=== PATIENT | female | born 1960 | race Caucasian/White ===

== ENCOUNTER 2023-12-27 08:04 | Inpatient (IN) | payer OTHER ==
[~2023-12-27] VITALS: Ht 165.1 cm; Wt 87.0 kg
[~2023-12-27 08:04] MED LIST: ALBUAER3 IN; BUPR150T18 PO; CALC-437 OR; IBUP1TAB5 PO; LIDO1CRE EX; MULT-927 PO; QUET200T4 PO
[2023-12-27] MEDS: CELECOXIB 100 MG CAP PO ONE (09:30)
[2023-12-27] MEDS: PREGABALIN CAPSULE 75 MG CAP PO ONE (09:30)
[2023-12-27] MEDS: ACETAMINOPHEN IV 1000 MG/100ML (10MG/ML) IV ONE (09:30)
[2023-12-27] MEDS: CELECOXIB 100 MG CAP ONE (09:30)
[2023-12-27] MEDS: PREGABALIN CAPSULE 75 MG CAP ONE (09:31)
[2023-12-27] MEDS: ACETAMINOPHEN IV 100 ML IV ONE (09:31)
[2023-12-27] MEDS ORDERED: MIDAZOLAM HCL 2MG/2ML 2ml VIAL (1mg/ml) ONE (09:38)
[2023-12-27] MEDS ORDERED: fentaNYL CITRATE 100 MCG/2 ML VL ONE (09:38)
[2023-12-27] MEDS ORDERED: PROPOFOL 10 MG/ML 20 ML IV ONE ×2 (09:38→10:54)
[2023-12-27] MEDS ORDERED: ONDANSETRON HCL 4 MG/2 ML VIAL ONE (09:38)
[2023-12-27] MEDS ORDERED: DexAMETHasone SOD PHOS 10MG/1ML VIAL INJ ONE (09:38)
[2023-12-27] MEDS ORDERED: SODIUM CHLORIDE LOCK 10 ML ONE (09:38)
[2023-12-27] MEDS ORDERED: KETAMINE 50mg/ML 1ml syringe ONE (09:39)
[2023-12-27] MEDS ORDERED: EPINEPHrine HCL 1 MG/1 ML AMP ONE (09:44)
[2023-12-27] MEDS ORDERED: BUPIVACAINE/DEXTROSE MPF 0.75% 2 ML AMP IT ONE (09:44)
[2023-12-27] MEDS ORDERED: NITROGLYCERIN 0.4 MG SL TAB SL PRN (09:45)
[2023-12-27] MEDS ORDERED: ALBUTEROL SULF HFA 90MCG INH 200DOSE IN SCH (09:45)
[2023-12-27] MEDS ORDERED: OXYCODONE W/ ACETAMINOPHEN 5/325MG TABLET PO PRN (09:45)
[2023-12-27] MEDS ORDERED: MORPHINE SULFATE INJ 2 MG/ml SYRG IV PRN ×2 (09:45→10:15)
[2023-12-27] MEDS: ENOXAPARIN SOD 40 MG/0.4 ML SYRINGE SC SCH (10:00)
[2023-12-27] MEDS ORDERED: ONDANSETRON HCL 4 MG/2 ML VIAL IV PRN (10:15)
[2023-12-27] MEDS ORDERED: HYDROmorphone HCL 2 MG/ML VL/or syr IV PRN ×2 (10:15)
[2023-12-27] MEDS: DexAMETHasone SOD PHOS 4 MG/1ML SDV INJ ONE (11:02)
[2023-12-27] MEDS: BUPIVACAINE 0.25% INJ 50ML VIAL ONE (11:02)
[2023-12-27 11:11] VITALS: RESP 14; O2SAT 97
[2023-12-27] MEDS: LACTATED RINGER'S 1,000 ML IV SCH (12:45)
[2023-12-27] MEDS: MULTIPLE VITAMINS W/ MINERALS TAB PO SCH (14:14)
[2023-12-27] MEDS: oxyCODONE ER 10 MG TAB PO SCH (14:44)
[2023-12-27] MEDS: NICOTINE 21MG/24 HR TOPICAL PATCH TD ONE (14:50)
[2023-12-27] MEDS: HYDROmorphone HCL 2 MG/ML VL/or syr IV PRN (15:10)
[2023-12-27] MEDS: SODIUM CHLOR 0.9% PF (SALINE LOCK) 10ML VIAL/SYR IV SCH (15:10)
[2023-12-27] MEDS: ceFAZolin 1GM/50ML 50 ML IV SCH ×2 (15:20→20:42)
[2023-12-27] MEDS: ONDANSETRON HCL 4 MG/2 ML VIAL IV PRN (15:54)
[2023-12-27 16:13] VITALS: PULSE 81; RESP 18; O2SAT 97
[2023-12-27 16:56] VITALS: BP 130/67; PULSE 79; RESP 16; TEMP 98.2; O2SAT 97
[2023-12-27 20:00] VITALS: BP 106/62; PULSE 78; RESP 16; TEMP 97.6; O2SAT 100
[2023-12-27] MEDS ORDERED: ALBUTEROL SULF 2.5 MG/0.5ML(0.5%) NEB SOLN NEB PRN (21:45)
[2023-12-27 22:00] VITALS: BP 106/62; PULSE 79; RESP 16; TEMP 97.6; O2SAT 100
[2023-12-27] MEDS ORDERED: Quetiapine Fumerate (Seroquel Xr) 200 MG PO SCH (22:00)
[2023-12-27] MEDS: QUEtiapine FUMARATE 100 MG TAB PO SCH (22:14)
[2023-12-27 23:36] VITALS: BP 106/62; PULSE 79; RESP 16; O2SAT 100
[2023-12-28] VITALS (10 sets, daily range): BP systolic 104–151; BP diastolic 59–71; PULSE 72–89; RESP 15–19; TEMP 97.8–99.8; O2SAT 97–100
[2023-12-28 06:48] LABS: Basophils # (auto) 0 10 ^3/uL (0-0.2); Basophils % (auto) 0.1 % (0.0-2.0); Eosinophils # (auto) 0 10 ^3/uL (0-0.8); Hematocrit 34.8 % (36.0-46.0); Hemoglobin 11.5 g/dL (12.2-16.2); Lymphocytes # (auto) 1.5 10 ^3/uL (0.4-5.4); Lymphocytes % (auto) 12.8 % (10.0-50.0); Mean Corpuscular Hgb Conc. 33.1 g/dL (32.0-36.0); Mean Corpuscular Volume 87.7 fL (80.0-100.0); Monocytes % (auto) 9.1 % (0.0-12.0); Nucleated Red Blood Cells % 0.2 %; Red Blood Cells 3.97 10^6/uL (4.0-5.20); Red Cell Distribution Width 13.3 % (11.8-14.3); White Blood Cell 11.6 10^3/uL (4.4-10.8)
[2023-12-28 06:49] LABS: Alanine Aminotransferase 17 U/L (7-40); Albumin 3.4 g/dL (3.2-4.8); Alkaline Phosphatase 67 U/L (46-116); Anion Gap 5 (5-15); Aspartate Aminotransferase 12 U/L (13-40); BUN/Creatinine Ratio 10.7 (10.0-20.0); Bilirubin, Total 0.5 mg/dL (0.2-1.0); Blood Urea Nitrogen 8 mg/dL (9-23); Calcium 8.7 mg/dL (8.7-10.4); Carbon Dioxide 25 mmol/L (20-30); Chloride 109 mmol/L (98-107); Glucose 115 mg/dL (74-106); Potassium 4.4 mmol/L (3.5-5.1); Sodium 139 mmol/L (136-145); Total Protein 5.8 g/dL (5.7-8.2)
[2023-12-28] MEDS ORDERED: buPROPion HCL 75 MG TAB PO SCH (07:00)
[2023-12-28] MEDS ORDERED: BUPROPION HCL 300 MG PO SCH (07:00)
[2023-12-28] MEDS: NICOTINE 21MG/24 HR TOPICAL PATCH TD SCH (09:28)
[2023-12-29 05:00] VITALS: BP 113/54; PULSE 107; RESP 18; TEMP 99.9; O2SAT 93
[2023-12-29 09:00] VITALS: BP 108/61; PULSE 107; RESP 18; TEMP 98.4; O2SAT 90
[2023-12-29 11:42] VITALS: TEMP 36.9
[2023-12-29 11:50] VITALS: BP 104/56; PULSE 103; RESP 20; TEMP 100; O2SAT 93
[2023-12-29 12:25] VITALS: O2SAT 91
== END 2023-12-29 12:35 | disposition home or self-care (01) | DRG 470 ==
LOC: SUR 08:04 → OVERFLOW 09:36 → CENTRAL 15:45
PROVIDERS: ADMIT Orthopaedic Surgery Adult Reconstructive Orthopaedic Surgery; ATTEND Internal Medicine
PROC: 0SRD0J9 Replacement of Left Knee Joint with Synthetic Substitute, Cemented, Open Approach (ICD-10-PCS; principal; 2023-12-27 09:43)
DX: M17.12 Unilateral primary osteoarthritis, left knee (principal); F31.9 Bipolar disorder, unspecified; F17.210 Nicotine dependence, cigarettes, uncomplicated
CPT/HCPCS: 36415; 73562; 80053; 84443; 85025; 86850; 86900; 86901; 97163; G0378; J0131; J0171; J1100; J2250; J2405; J2704; J3490

== ENCOUNTER 2024-08-24 21:25 | Inpatient (IN) | payer OTHER ==
[~2024-08-24] VITALS: Ht 165.1 cm; Wt 75.6 kg
[2024-08-24 21:50] LABS: Basophils # (auto) 0.1 10 ^3/uL (0-0.2); Basophils % (auto) 0.5 % (0.0-2.0); Eosinophils # (auto) 0 10 ^3/uL (0-0.8); Hematocrit 43.7 % (36.0-46.0); Hemoglobin 14.9 g/dL (12.2-16.2); Lymphocytes # (auto) 1.4 10 ^3/uL (0.4-5.4); Lymphocytes % (auto) 11.7 % (10.0-50.0); Mean Corpuscular Hemoglobin 30.1 pg (28.0-32.0); Mean Corpuscular Hgb Conc. 34.2 g/dL (32.0-36.0); Monocytes # (auto) 0.7 10 ^3/uL (0-1.3); Monocytes % (auto) 5.6 % (0.0-12.0); Neutrophils # (auto) 9.5 10 ^3/uL (1.6-8.6); Neutrophils % (auto) 82.2 % (37.0-80.0); Nucleated Red Blood Cells % 0.2 %; Platelet Count (auto) 272 10^3/uL (140-450); Red Blood Cells 4.96 10^6/uL (4.0-5.20); Red Cell Distribution Width 13.5 % (11.8-14.3); White Blood Cell 11.6 10^3/uL (4.4-10.8)
[2024-08-24 21:58] LABS: Chloride 110 mmol/L (98-107); Potassium 4.2 mmol/L (3.5-5.1); Sodium 140 mmol/L (136-145)
[2024-08-24 21:59] LABS: Calcium 10.1 mg/dL (8.7-10.4)
--- NOTE | 2024-08-24 21:59 | DVH ---
EXAM: XY CHEST PORTABLE CLINICAL HISTORY: syncope TECHNIQUE: Single AP view of the chest WID: COMPARISON: None FINDINGS: Lines and tubes: None Chest: The heart size and pulmonary vasculature is within normal limits. No pleural effusion, pneumothorax, or consolidation. The osseous structures are grossly intact. Multilevel thoracic spondylosis IMPRESSION: No acute cardiopulmonary abnormality.
--- NOTE | 2024-08-24 22:00 | ED.PDOC ---
History of Present Illness HPI Comments 64 year old female came to ER via EMS due to syncope. Patient has history of hypertension, states for the past 4 days, she has been having intermittent episodes of syncopal attacks., States she would feel dizzy, lightheaded, with headaches, diaphoretic, nausea, vomiting, dry heaving and she would just pass ou t. States this happened quite a few times the past 4 days. Upon arrival, blood pressure was 186/82 mmHg Chief Complaint: Syncope Time Seen by MD: 22:00 Reviewed Notes: Nurses Notes Allergies: Coded Allergies: NO KNOWN ALLERGIES (Unverified , 12/23/23) Home Meds Reported Medications Ibuprofen Micronized (Ibuprofen) 600 Mg Tab, 600 MG PO BID, TAB 12/23/23 Calcium W/ Vitamins D & K (CALCIUM + D) Chw, 1 OR DAILY, TAB.CHEW 12/23/23 Multiple Vitamins W/ Minerals (Centrum Silver 50+Women) 1 Tab Tab, 1 TAB PO DAILY, TAB 12/23/23 Lidocaine HCl-Benzyl Alcohol (Salonpas Lidocaine Plus 4-10 %) 1 Cre Cre, 1 CRE EX PRN, CRE 12/23/23 Albuterol Sulfate (VENTOLIN MDI) 90 Mcg Ih, 90 MCG IN PRN, INH 12/23/23 Bupropion Hcl (Bupropion Hcl Xl) 150 Mg Tab, 300 MG PO QAM, TAB 12/23/23 Quetiapine Fumerate (Seroquel Xr) 200 Mg Tab, 200 MG PO HS, TAB 12/23/23 Information Source: Patient Mode of Arrival: EMS Severity: Moderate Timing: Days Duration: Intermittent Prehospital treatment: None Past Medical History PAST MEDICAL HISTORY: HTN Surgical History: Denies all surgeries MANAGER DIVERSITY History: Denies all MANAGER DIVERSITY Hx Family History Family History: Reviewed,noncontributory to illness Social History Smoker: Non-Smoker Alcohol: Denies ETOH Use Drugs: Denies Drug Use Lives In: Home Constitutional: reports: diaphoresis; denies: chills, fatigue, fever, malaise, sweats, weakness, others EENTM: denies: blurred vision, double vision, ear bleeding, ear discharge, ear drainage, ear pain, ear ringing, eye pain, eye redness, hearing loss, mouth pain, mouth swelling, nasal discharge, nose bleeding, nose congestion, nose pain, photophobia, tearing, throat pain, throat swelling, voice changes, others Cardiovascular: denies: chest pain, dizzy spells, diaphoresis, Dyspnea on exertion, edema, irregular heart beat, left arm pain, lightheadedness, palpitations, PND, syncope, others Gastrointestinal: reports: nausea, vomiting; denies: abdomen distended, abdominal pain, blood streaked bowels, constipated, diarrhea, dysphagia, difficulty swallowing, hematemesis, melena, poor appetite, poor fluid intake, r ectal bleeding, rectal pain, others Genitourinary: denies: abnormal vagina bleeding, burning, dyspareunia, dysuria, flank pain, frequency, hematuria, incontinence, pain, , vagina discharge, urgency, others Neurological: reports: dizziness, fainting, headache; denies: left sided numbness, left sided weakness, numbness, paresthesia, pre-existing deficit, right sided numbness, right sided weakness, seizure, speech problems, tingling, tremors, weakness, others Musculoskeletal: denies: back pain, gout, joint pain, joint swelling, muscle pain, muscle stiffness, neck pain, others Integumetry: denies: bruises, change in color, change in hair/nails, dryness, laceration, lesions, lumps, rash, wounds, others Allergic/Immunocompromised: denies: Difficulty Healing, Frequent Infections, Hives, Itching, others Hematologic/Lymphatic: denies: anemia, blood clots, easy bleeding, easy bruising, swollen glands, others Endocrine: denies: excessive hunger, excessive sweating, excessive thirst, excessive urination, flushing, intolerance to cold, intolerance to heat, unexplained weight gain, unexplained weight loss, others Psychiatric: denies: anxiety, bipolar disorder, depression, hopeless, panic disorder, schizophrenia, sleepless, suicidal, others Physical Exam General Appearance: No Apparent Distress, Normal HEENT: Normal ENT Inspection, Pharynx Normal, TMs Normal Neck: Full Range of Motion, Non-Tender, Normal, Normal Inspection Respiratory: Chest Non-Tender, Lungs Clear, No Accessory Muscle Use, No Respiratory Distress, Normal Breath Sounds Cardiovascular: No Edema, No JVD, No Murmur, No Gallop, Normal Peripheral Pulses, Regular Rate/Rhythm Breast Exam: Deferred Gastrointestinal: No Organomegaly, Non Tender, No Pulsatile Mass, Normal Bowel Sounds, Soft Genitalia: Deferred Pelvic: Deferred Rectal: Deferred Extremities: No calf tenderness, Normal capillary refill, Normal inspection, Normal range of motion, Non-tender, No pedal edema Musculoskeletal : Apperance: Normal Neurologic: Alert, wire bender hand II-XII nml as Tested, No Motor Deficits, Normal Affect, Normal Mood, No Sensory Deficits Cerebellar Function: Normal Reflexes: Normal Skin: Dry, Normal Color, Warm Lymphatic: No Adenopathy Was a procedure done? Was a procedure done?: No Differential Dx Considerations may include: anemia, electrolyte imbalance, syncope, hypertension X-Ray, Labs, Meds, VS Vital Signs Date Time Temp Pulse Resp B/P (MAP) Pulse Ox O2 Delivery O2 Flow Rate FiO2 08/25/24 00:00 85 08/24/24 23:39 89 96 Room Air* 0 21 08/24/24 22:30 97.8 80 16 150/81 (104) 96 97.8 08/24/24 22:05 87 08/24/24 21:25 98.2 99 16 186/102 (130) 97 Lab Test 08/24/24 22:30 08/24/24 21:35 Range/Units Troponin I High Sensitivity < 3 L < 3 L </=34 ng/L White Blood Count 11.6 H 4.4-10.8 10^3/uL Red Blood Count 4.96 4.0-5.20 10^6/uL Hemoglobin 14.9 12.2-16.2 g/dL Hematocrit 43.7 36.0-46.0 % Mean Corpuscular Volume 88.0 80.0-100.0 fL Mean Corpuscular Hemoglobin 30.1 28.0-32.0 pg Mean Corpuscular Hemoglobin Concent 34.2 32.0-36.0 g/dL Red Cell Distribution Width 13.5 11.8-14.3 % Platelet Count 272 140-450 10^3/uL Mean Platelet Volume 7.7 6.9-10.8 fL Neutrophils (%) (Auto) 82.2 H 37.0-80.0 % Lymphocytes (%) (Auto) 11.7 10.0-50.0 % Monocytes (%) (Auto) 5.6 0.0-12.0 % Eosinophils (%) (Auto) 0.0 0.0-7.0 % Basophils (%) (Auto) 0.5 0.0-2.0 % Neutrophils # (Auto) 9.5 H 1.6-8.6 10 ^3/uL Lymphocytes # (Auto) 1.4 0.4-5.4 10 ^3/uL Monocytes # (Auto) 0.7 0-1.3 10 ^3/uL Eosinophils # (Auto) 0 0-0.8 10 ^3/uL Basophils # (Auto) 0.1 0-0.2 10 ^3/uL Nucleated Red Blood Cells 0.2 % Sodium Level 140 136-145 mmol/L Potassium Level 4.2 3.5-5.1 mmol/L Chloride Level 110 H 98-107 mmol/L Carbon Dioxide Level 24 20-31 mmol/L Anion Gap 6 5-15 Blood Urea Nitrogen 9 9-23 mg/dL Creatinine 0.89 0.550-1.02 mg/dL Glomerular Filtration Rate Calc 73 >90 mL/min BUN/Creatinine Ratio 10.1 10.0-20.0 Serum Glucose 116 H 74-106 mg/dL Calcium Level 10.1 8.7-10.4 mg/dL EXAM: XY CHEST PORTABLE FINDINGS: Lines and tubes: None Chest: The heart size and pulmonary vasculature is within normal limits. No pleural effusion, pneumothorax, or consolidation. The osseous structures are grossly intact. Multilevel thoracic spondylosis IMPRESSION: No acute cardiopulmonary abnormality. Time of 1ST Reevaluation: 00:28 Reevaluation 1ST: Unchanged Patient Education/Counseling: Diagnosis, Treatment Family Education/Counseling: No Family Present Departure 1 Departure Time of Disposition: 00:26 (Patient presented with syncope today and should be admitted. Data: 1. I ordered and reviewed the result of at least 3 labs including a CBC, BMP, and troponin. 2. I independently interpreted the following tests: EKG which shows a normal sinus and a chest x-ray which shows benign chest and a CT head which shows benign brain.Risk:This patient has a high risk of morbidity due to further diagnostic testing or treatment and may suffer from an acute cardiac, neurologic, or infectious disorder. Rationale: Patient should be admitted to the hospital for further management.) Impression: Primary Impression: Syncope and collapse Additional Impression: Weakness Disposition: 01 HOME / SELF CARE / HOMELESS Condition: Stable Critical Care Note Critical Care Time?: Yes (35 min-critical care time only) Critical care comment: hypertensive urgency Authorized and Performed by: Rachel Moses MD Total critical care time: Approximately 38 minutes Due to a high probability of clinically significant, life threatening deterioration, the patient required my highest level of preparedness to intervene emergently and I personally spent this critical care time directly and personally managing the patient. This critical care time included obtaining a history; examining the patient; pulse oximetry; ordering and review of studies; arranging urgent treatment with development of a management plan; evaluation of patient's response to treatment; frequent reassessment; and, discussions with other providers. This critical care time was performed to assess and manage the high probability of imminent, life-threatening deterioration that could result in multi-organ failure. It was exclusive of separately billable procedures and treating other patients and teaching time. Please see my other sections and the rest of the note for further information on patient assessment and treatment. Stability Stability form required: No Heart Score Heart Score: Heart Score Response (Comments) Value History Moderate Suspicious 1 EKG Normal 0 Age 45-64 1 Risk Factors 1 or 2 risk factors 1 Troponin 1-2 x's Normal limit 1 Total 4 I personally scribed for RACHEL MOSES MD ([email or web address]) on 08/24/24 at 22:00. Electronically submitted by Charli Paula ([email or web address]). I personally scribed for RACHEL MOSES MD ([email or web address]) on 08/24/24 at 22:19. Electronically submitted by Charli Paula ([email or web address]). RACHEL MOSES MD Aug 24, 2024 22:00
[2024-08-24 22:04] LABS: BUN/Creatinine Ratio 10.1 (10.0-20.0); Blood Urea Nitrogen 9 mg/dL (9-23); Glucose 116 mg/dL (74-106)
[2024-08-24 22:14] LABS: Anion Gap 6 (5-15); Carbon Dioxide 24 mmol/L (20-31)
[2024-08-24 23:39] VITALS: PULSE 89; O2SAT 96
[2024-08-25] VITALS (7 sets, daily range): BP systolic 130–146; BP diastolic 73–80; PULSE 77–90; RESP 12–20; TEMP 97.9–98.4; O2SAT 93–95
--- NOTE | 2024-08-25 00:17 | DVH ---
CLINICAL HISTORY: syncope TECHNIQUE: Helical imaging carried out from skull base to vertex without intravenous contrast. This e xam was performed according to our departmental dose optimization program. Up-to-date CT equipment an d radiation dose reduction techniques are utilized as appropriate. WID: COMPARISON: None FINDINGS: The ventricles and subarachnoid spaces are normal in size and configuration. There is no midline josé ft or mass effect. The fields white matter interfaces are maintained. The basal cisterns are patent. Th ere is no evidence of acute intracranial hemorrhage or extra-axial fluid collection. The mastoid air cells and visualized paranasal sinuses are well-aerated. IMPRESSION: No acute intracranial abnormality.
[2024-08-25 00:31] LABS: Urine Bacteria None Seen /hpf (None Seen)
[2024-08-25] MEDS ORDERED: NITROGLYCERIN 0.4 MG SL TAB SL PRN (00:45)
[2024-08-25] MEDS ORDERED: DOCUSATE SOD 100 MG CAP PO PRN (00:45)
[2024-08-25] MEDS ORDERED: MORPHINE SULFATE INJ 2 MG/ml SYRG IV PRN (00:45)
[2024-08-25] MEDS ORDERED: hydrALAZINE HCL 20 MG/ML VL IV PRN (00:45)
[2024-08-25 01:03] LABS: Urine Blood Negative /uL (Negative); Urine Clarity Clear (Clear); Urine Color Light-Yellow (Yellow); Urine Protein, UAD Negative (Negative); Urine Specific Gravity 1.017 (1.001-1.035); Urine Urobilinogen Normal (Negative); Urine WBC <1 /hpf (0 - 5)
--- NOTE | 2024-08-25 01:14 | DVHHP2 ---
History of Present Illness Reason for Visit: SYNCOPE AND COLLAPSE History of Present Illness THE PATIENT IS A 64-YEAR-OLD FEMALE WITH PAST MEDICAL HISTORY OF HYPERTENSION WHO PRESENTED TO [facility] ED FOR EVALUATION OF SYNCOPE. PATIENT REPORTS HAS BEEN HAVING INTERMITTENT EPISODE OF OF SYNCOPAL ATTACK, FELT DIZZY, LIGHTHEADED, DIAPHORETIC, HEADACHE, NAUSEA, VOMITING, GETTING WORSE TODAY THAT PROMPTED THIS VISIT. PATIENT WAS SEEN AND EVALUATED IN THE ED, LABORATORY DATA SHOWS WBC 11.6, PLATELETS 272, SODIUM 140, POTASSIUM 4.2, BUN 9, CREATININE 0.89, GLUCOSE 116, TROPONIN 3, BLOOD PRESSURE 186/102 TRENDING DOWN TO 150/81, HEART RATE 86, TEMPERATURE 97.8 F, O2 SATURATION 96% ON ROOM AIR. PLEASE SEE MEDICATION ORDERS SECTION IN THE COMPUTER. ON MY ASSESSMENT, PATIENT DENIED CHEST PAIN, NO HEADACHE, NO DIZZINESS, NO DIAPHORESIS, NO PALPITATION, NO SHORTNESS A BREATH, NO NAUSEA, NO VOMITING, NO FEVER, NO CHILLS. PATIENT WAS ADMITTED FOR FURTHER EVALUATION AND MEDICAL MANAGEMENT. Past Medical History HTN Past Surgical History Denies all surgeries Family History REVIEWED, NONCONTRIBUTORY TO THE MANAGEMENT OF THIS CASE. Past Social History THE PATIENT LIVES AT HOME, DENIES SMOKING, ALCOHOL OR ILLICIT DRUGS ABUSE. Review of Systems Constitutional: Yes: Weakness, Other (DIAPHORESIS); No: Fever, Chills, Sweats, Malaise Eyes: No: Pain, Vision change, Conjunctivae inflammation, Eyelid inflammation, Other, Redness ENT: No: Ear pain, Ear discharge, Nose pain, Nose discharge, Nose congestion, Mouth pain, Mouth swelling, Throat pain, Throat swelling, Other Respiratory: No: Cough, Dry, Shortness of breath, SOB with excertion, Wheezing, Hemoptysis, Pleuritic Pain, Sputum, Wheezing, Other Cardiovascular: No: Chest Pain, Palpitations, Orthopnea, Paroxysmal Noc. Dyspnea, Edema, Lt Headedness, Other Gastrointestinal: Nausea, Vomiting; No: Abdominal Pain, Diarrhea, Constipation, Melena, Hematochezia, Other Genitourinary: No Dysuria, No Frequency, No Incontinence, No Hematuria, No Retention, No Other Musculoskeletal: No: other, neck pain, shoulder pain, arm pain, back pain, hand pain, leg pain, foot pain Skin: No: Rash, Lesions, Jaundice, Bruising, Other Neurological: Other ( dizziness, fainting, headache.); No: Weakness, Numbness, Incoordination, Change in speech, Confusion, Seizures Allergies: Coded Allergies: NO KNOWN ALLERGIES (Unverified , 12/23/23) Exam Vital Signs Vital Signs Date Time Temp Pulse Resp B/P (MAP) Pulse Ox O2 Delivery O2 Flow Rate FiO2 08/25/24 00:00 85 08/24/24 23:39 96 Room Air* 0 21 08/24/24 22:30 97.8 16 150/81 (104) 97.8 General Appearance: Alert, Oriented X3, Cooperative, No acute distress HEENT: Atraumatic, PERRLA, EOMI, Mucous membr. moist/pink Respiratory: Clear to auscultation, Normal air movement Cardiovascular: Regular rate, Normal S1, Normal S2, No murmurs Abdominal: Normal bowel sounds, Soft, No tenderness, No hepatospenomegaly, No masses Extremities: No clubbing, No cyanosis, No edema, Normal pulses, No tenderness/swelling Skin: No rashes, No breakdown, No significant lesion Neuro: Normal gait, Normal speech, Strength at 5/5 X4 ext, Normal tone, Sensation intact, Cranial nerves 3-12 NL, Reflexes 2+ Psych/Mental Status: Mental status NL, Mood NL Labs/Xrays Labs Test 08/25/24 00:00 08/24/24 22:30 08/24/24 21:35 Range/Units Troponin I High Sensitivity < 3 L </=34 ng/L White Blood Count 11.6 H 4.4-10.8 10^3/uL Red Blood Count 4.96 4.0-5.20 10^6/uL Hemoglobin 14.9 12.2-16.2 g/dL Hematocrit 43.7 36.0-46.0 % Mean Corpuscular Volume 88.0 80.0-100.0 fL Mean Corpuscular Hemoglobin 30.1 28.0-32.0 pg Mean Corpuscular Hemoglobin Concent 34.2 32.0-36.0 g/dL Red Cell Distribution Width 13.5 11.8-14.3 % Platelet Count 272 140-450 10^3/uL Mean Platelet Volume 7.7 6.9-10.8 fL Neutrophils (%) (Auto) 82.2 H 37.0-80.0 % Lymphocytes (%) (Auto) 11.7 10.0-50.0 % Monocytes (%) (Auto) 5.6 0.0-12.0 % Eosinophils (%) (Auto) 0.0 0.0-7.0 % Basophils (%) (Auto) 0.5 0.0-2.0 % Neutrophils # (Auto) 9.5 H 1.6-8.6 10 ^3/uL Lymphocytes # (Auto) 1.4 0.4-5.4 10 ^3/uL Monocytes # (Auto) 0.7 0-1.3 10 ^3/uL Eosinophils # (Auto) 0 0-0.8 10 ^3/uL Basophils # (Auto) 0.1 0-0.2 10 ^3/uL Nucleated Red Blood Cells 0.2 % Sodium Level 140 136-145 mmol/L Potassium Level 4.2 3.5-5.1 mmol/L Chloride Level 110 H 98-107 mmol/L Carbon Dioxide Level 24 20-31 mmol/L Anion Gap 6 5-15 Blood Urea Nitrogen 9 9-23 mg/dL Creatinine 0.89 0.550-1.02 mg/dL Glomerular Filtration Rate Calc 73 >90 mL/min BUN/Creatinine Ratio 10.1 10.0-20.0 Serum Glucose 116 H 74-106 mg/dL Calcium Level 10.1 8.7-10.4 mg/dL PATIENT: GLADYS LORENZ ACCT: [id number] UNIT: [id number] : 1960 LOC: ER ROOM / BED: / AGE / SEX: 64 / F ADM STATUS: REG ER SERVICE 29 ORDERING PHYSICIAN: RACHEL ESPARZA MD PROCEDURE(s): HWOCT - HEAD WITHOUT CONTRAST REASON: syncope ORDER NUMBER(s): [id number], ACCESSION NUMBER(s): [id number] CLINICAL HISTORY: syncope TECHNIQUE: Helical imaging carried out from skull base to vertex without intravenous contrast. This exam was performed according to our departmental dose optimization program. Up-to-date CT equipment and radiation dose reduction techniques are utilized as appropriate. WID: COMPARISON: None FINDINGS: The ventricles and subarachnoid spaces are normal in size and configuration. There is no midline shift or mass effect. The fields white matter interfaces are maintained. The basal cisterns are patent. There is no evidence of acute intracranial hemorrhage or extra-axial fluid collection. The mastoid air cells and visualized paranasal sinuses are well-aerated. IMPRESSION: No acute intracranial abnormality. ORDERING PHYSICIAN: RACHEL ESPARZA MD PROCEDURE(s): CXRP - CHEST PORTABLE REASON: syncope ORDER NUMBER(s): [id number], ACCESSION NUMBER(s): [id number] EXAM: XY CHEST PORTABLE CLINICAL HISTORY: syncope TECHNIQUE: Single AP view of the chest WID: COMPARISON: None FINDINGS: Lines and tubes: None Chest: The heart size and pulmonary vasculature is within normal limits. No pleural effusion, pneumothorax, or consolidation. The osseous structures are grossly intact. Multilevel thoracic spondylosis IMPRESSION: No acute cardiopulmonary abnormality. Assessment/Plan Assessment/Plan SYNCOPE AND COLLAPSE GENERALIZED WEAKNESS HYPERTENSIVE URGENCY PLAN 1. ADMIT TO TELEMETRY UNIT 2. BREATHING TREATMENT 3. PAIN CONTROL MANAGEMENT 4. MANAGEMENT OF FLUIDS AND ELECTROLYTES 5. CONSULTATION FOR HOSPITALIST 6. DIAGNOSTIC TESTS HEAD CT 7. DVT PROPHYLAXIS ON SCDS 8. REPEAT LABS CBC, CMP IN A.M. 9. CONTINUE WITH CURRENT MEDICAL MANAGEMENT 10. TREATMENT PLAN DISCUSSED WITH PATIENT AND RN. PATIENT VERBALIZED UNDERSTANDING. Plan discussed with: Patient, Other (RN) My Orders Orders - RAMÓN SADLER DNP Procedure Category Date Status Time Complete Blood Count LAB 08/25/24 Verified 04:00 Comprehensive LAB 08/25/24 Verified Metabolic Panel 04:00 Hydralazine Injection PHA 08/25/24 Verified (Apresoline Inject 00:45 Admit ADMIT 08/25/24 Verified 00:43 Allergies KAVON 08/25/24 Verified 00:43 Code Status CODE 08/25/24 Verified 00:43 Sodium Chloride Lock PHA 08/25/24 Verified (Saline Lock Ns) 06:00 Oxygen Per Hour RT 08/25/24 Verified 00:43 Hydrocodone-Acet PHA 08/25/24 Verified 5/325mg Tab (Krum 00:45 Ondansetron Hcl PHA 08/25/24 Verified (Zofran) 00:45 Docusate Sodium PHA 08/25/24 Verified Capsule (Colace 00:45 Complete Blood Count LAB 08/26/24 Verified 04:00 Comprehensive LAB 08/26/24 Verified Metabolic Panel 04:00 Cardiac DIET 08/25/24 Verified Diet-2gna,Lofat,Lochol Breakfast Condition: Serious KAVON 08/25/24 Verified 00:43 Acetaminophen Tablet PHA 08/25/24 Verified (Tylenol Tablet) 00:45 Bedrest With Bathroom [facility] 08/25/24 Verified Privileg 00:43 Sequential [facility] 08/25/24 Verified Compression Device Nitroglycerin [facility] 08/25/24 Verified Sublingual (Ntrostat 00:45 Morphine Sulfate [facility] 08/25/24 Verified Injection 00:45 Notify Md Of Changes [facility] 08/25/24 Verified From Base 00:43 Heart Coordinator For [facility] 08/25/24 Verified 24 Hours 00:43 Emergency Dysrhythmia [facility] 08/25/24 Verified Protocol 00:43 Rhythm Strips Once [facility] 08/25/24 Verified Every Shift 00:43 Oxygen By Nasal 08/25/24 Verified Cannula 00:43 Problem List: (1) Syncope and collapse (2) Hypertensive urgency (3) Generalized weakness Date of Service: Aug 25, 2024 Billing Provider: RAMÓN SADLER DNP Common Visit Codes: [id number] INP/OBS CARE (HIGH) RAMÓN SADLER DNP Aug 25, 2024 01:14
[2024-08-25] MEDS: HYDROcodone-ACET 5/325MG TAB PO PRN (02:01)
[2024-08-25] MEDS: ONDANSETRON HCL 4 MG/2 ML VIAL IV PRN (02:02)
[2024-08-25] MEDS: ACETAMINOPHEN 325 MG TAB PO PRN (05:00)
[2024-08-25] MEDS: SODIUM CHLOR 0.9% PF (SALINE LOCK) 10ML VIAL/SYR IV SCH (06:29)
--- NOTE | 2024-08-25 07:04 | ECG ---
[facility] Test Date: 2024-08-24 Test Time: 22:05:11 Pat Name: GLADYS LORENZ Department: ER Room: [address] [place] [address] Gender: F Operations Specialist: JUAN : 1960 Requested By: RACHEL ESPARZA Order Number: [id number] Reading MD: Measurements Intervals Waldo Rate: 87 P: 78 LA: 158 QRS: 69 QRSD: 81 T: 54 QT: 362 QTc: 436 Interpretive Statements Sinus rhythm Low voltage, precordial leads Please click the below link to view image of tracing.
[2024-08-25 07:05] LABS: Basophils # (auto) 0.1 10 ^3/uL (0-0.2); Basophils % (auto) 0.8 % (0.0-2.0); Eosinophils # (auto) 0 10 ^3/uL (0-0.8); Eosinophils % (auto) 0.6 % (0.0-7.0); Hemoglobin 14.4 g/dL (12.2-16.2); Lymphocytes # (auto) 2.3 10 ^3/uL (0.4-5.4); Lymphocytes % (auto) 30.2 % (10.0-50.0); Mean Corpuscular Hemoglobin 30.4 pg (28.0-32.0); Mean Corpuscular Hgb Conc. 34.3 g/dL (32.0-36.0); Mean Corpuscular Volume 88.7 fL (80.0-100.0); Monocytes # (auto) 0.9 10 ^3/uL (0-1.3); Monocytes % (auto) 11.6 % (0.0-12.0); Neutrophils # (auto) 4.4 10 ^3/uL (1.6-8.6); Neutrophils % (auto) 56.8 % (37.0-80.0); Nucleated Red Blood Cells % 0.2 %; Platelet Count (auto) 251 10^3/uL (140-450); Red Blood Cells 4.74 10^6/uL (4.0-5.20); Red Cell Distribution Width 13.4 % (11.8-14.3); White Blood Cell 7.7 10^3/uL (4.4-10.8)
[2024-08-25 07:26] LABS: Alanine Aminotransferase 24 U/L (7-40); Albumin 4.1 g/dL (3.2-4.8); Alkaline Phosphatase 88 U/L (46-116); Anion Gap 7 (5-15); Aspartate Aminotransferase 14 U/L (13-40); BUN/Creatinine Ratio 8.7 (10.0-20.0); Blood Urea Nitrogen 9 mg/dL (9-23); Calcium 9.9 mg/dL (8.7-10.4); Carbon Dioxide 25 mmol/L (20-31); Chloride 111 mmol/L (98-107); Glucose 104 mg/dL (74-106); Potassium 3.9 mmol/L (3.5-5.1); Sodium 143 mmol/L (136-145)
[2024-08-25 07:27] LABS: Bilirubin, Total 0.5 mg/dL (0.2-1.0)
[2024-08-25] MEDS: MORPHINE SULFATE INJ 2 MG/ml SYRG IV ONE (13:04)
[2024-08-25 14:07] LABS: Amphetamine Screen, Urine Neg (NEGATIVE); Barbiturate Scree,Urine Neg (NEGATIVE); Benzodiazephine Screen, Urine Neg (NEGATIVE); Cannabinoid Screen, Urine Neg (NEGATIVE); Cocaine Screen, Urine Neg (NEGATIVE); Opiate Scree,Urine Neg (NEGATIVE); Phencyclidine Screen, Urine Neg (NEGATIVE)
--- NOTE | 2024-08-25 14:56 | DVHINCON2 ---
Date Seen: Aug 25, 2024 Referring Physician Mello Reason for Consultation syncope History of Present Illness 64-year-old female patient with past medical history of bipolar disorder, anxiety and hypertension who came to the hospital with a chief complaint of dizziness and presyncope episode that started on Wednesday, patient reports she almost passed out when she was cooking, she started feeling dizzy associated with sweating and dry heaves episodes. These continues the progressing and getting worse until yesterday where she started vomiting and this time associated with severe headache 9/10 intensity in the front and back of the head. She remember she had 1 similar episode years ago. Head CT scan and chest x-rays were negative. That pressure on admission was 186/102 so these episodes were most likely related with a vasovagal syncope associated with a hypertensive urgency. Patient reports using ibuprofen for long period of time, she was advised to stop this as this also can compromise the blood pressure and damage other organs such as liver and kidneys, she reports recent episode of epigastric abdominal pain as she was continuously using ibuprofen and skipping meals in the morning. Past Medical History Hypertension Anxiety Bipolar disorder type 2 Gastritis? Past Surgical History Left knee replacement surgery Family History: Patient reports no known family medical history. Allergies: Coded Allergies: NO KNOWN ALLERGIES (Unverified , 12/23/23) Home Meds Reported Medications Ibuprofen Micronized (Ibuprofen) 600 Mg Tab, 600 MG PO BID, TAB 12/23/23 Calcium W/ Vitamins D & K (CALCIUM + D) Chw, 1 OR DAILY, TAB.CHEW 12/23/23 Multiple Vitamins W/ Minerals (Centrum Silver 50+Women) 1 Tab Tab, 1 TAB PO DAILY, TAB 12/23/23 Lidocaine HCl-Benzyl Alcohol (Salonpas Lidocaine Plus 4-10 %) 1 Cre Cre, 1 CRE EX PRN, CRE 12/23/23 Albuterol Sulfate (VENTOLIN MDI) 90 Mcg Ih, 90 MCG IN PRN, INH 12/23/23 Bupropion Hcl (Bupropion Hcl Xl) 150 Mg Tab, 300 MG PO QAM, TAB 12/23/23 Quetiapine Fumerate (Seroquel Xr) 200 Mg Tab, 200 MG PO HS, TAB 12/23/23 Current Medications Current Medications Medications (Trade) Dose Ordered Sig/Enriqueta Route PRN Reason Start Time Stop Time Status Last Admin Hydralazine HCl (Apresoline Injection) 10 mg Q6HP PRN IV SBP>150 08/25/24 00:45 08/25/24 13:17 DC Sodium Chloride (Saline Lock Ns) 10 ml Q8HR IV 08/25/24 06:00 08/25/24 06:29 Acetaminophen/ Hydrocodone Bitart (Sumerco 5/325MG Tab) 1 tab Q4HP PRN PO MODERATE PAIN (4-6 PAIN SCALE) 08/25/24 00:45 08/25/24 02:01 Ondansetron HCl (Zofran) 4 mg Q4HP PRN IV NAUSEA / VOMITING 08/25/24 00:45 08/25/24 02:02 Docusate Sodium (Colace Capsule) 100 mg BIDPRN PRN PO FOR CONSTIPATION 08/25/24 00:45 Acetaminophen (Tylenol Tablet) 650 mg Q6HP PRN PO PAIN SCALE 1-3 OR TEMP>100.4 08/25/24 00:45 08/25/24 05:00 Nitroglycerin (Ntrostat Sublingual) 0.4 mg Q5MINP PRN SL FOR CHEST PAIN 08/25/24 00:45 Morphine Sulfate 2 mg Q30M PRN IV FOR CHEST PAIN 08/25/24 00:45 Amlodipine Besylate (Norvasc Tablet) 10 mg DAILY PO 08/26/24 10:00 UNV Review of Systems Constitutional: No: Fever, Chills, Sweats, Weakness, Malaise, Other Eyes: No: Pain, Vision change, Conjunctivae inflammation, Eyelid inflammation, Other, Redness ENT: No: Ear pain, Ear discharge, Nose pain, Nose discharge, Nose congestion, Mouth pain, Mouth swelling, Throat pain, Throat swelling, Other Respiratory: No: Wheezing, Hemoptysis, Pleuritic Pain, Sputum, Wheezing, Other Cardiovascular: No: Chest Pain, Palpitations, Orthopnea, Paroxysmal Noc. Dyspnea, Edema, Lt Headedness, Other Gastrointestinal: No: Nausea, Vomiting, Abdominal Pain, Diarrhea, Constipation, Melena, Hematochezia, Other Musculoskeletal: No: other, neck pain, shoulder pain, arm pain, back pain, hand pain, leg pain, foot pain Neurological: Yes: Weakness, dizziness no: Numbness, Incoordination, Change in speech, Confusion, Seizures Vital Signs Vital Signs Date Time Temp Pulse Resp B/P (MAP) Pulse Ox O2 Delivery O2 Flow Rate FiO2 08/25/24 13:04 77 19 144/73 08/25/24 09:00 98.1 95 98.1 08/25/24 07:30 Room Air* 0 21 Physical Exam Examination General Appearance: Alert, Oriented X3, Cooperative, No acute distress HEENT: EOMI Respiratory: Clear to auscultation, Normal air movement Cardiovascular: Regular rate, Normal S1, Normal S2 Abdominal: Normal bowel sounds Extremities: No cyanosis, No edema, Normal pulses, No tenderness/swelling Skin: No rashes, No breakdown Neuro: Normal speech, Strength at 5/5 X4 ext, Normal tone, Sensation intact, Cranial nerves 3-12 NL, Reflexes 2+ Psych/Mental Status: Mental status NL, Mood NL Labs/Diagnostic Data Labs Test 08/25/24 06:44 08/25/24 00:00 08/24/24 22:30 Range/Units White Blood Count 7.7 # 4.4-10.8 10^3/uL Red Blood Count 4.74 4.0-5.20 10^6/uL Hemoglobin 14.4 12.2-16.2 g/dL Hematocrit 42.0 36.0-46.0 % Mean Corpuscular Volume 88.7 80.0-100.0 fL Mean Corpuscular Hemoglobin 30.4 28.0-32.0 pg Mean Corpuscular Hemoglobin Concent 34.3 32.0-36.0 g/dL Red Cell Distribution Width 13.4 11.8-14.3 % Platelet Count 251 140-450 10^3/uL Mean Platelet Volume 7.5 6.9-10.8 fL Neutrophils (%) (Auto) 56.8 37.0-80.0 % Lymphocytes (%) (Auto) 30.2 10.0-50.0 % Monocytes (%) (Auto) 11.6 0.0-12.0 % Eosinophils (%) (Auto) 0.6 0.0-7.0 % Basophils (%) (Auto) 0.8 0.0-2.0 % Neutrophils # (Auto) 4.4 1.6-8.6 10 ^3/uL Lymphocytes # (Auto) 2.3 0.4-5.4 10 ^3/uL Monocytes # (Auto) 0.9 0-1.3 10 ^3/uL Eosinophils # (Auto) 0 0-0.8 10 ^3/uL Basophils # (Auto) 0.1 0-0.2 10 ^3/uL Nucleated Red Blood Cells 0.2 % Sodium Level 143 136-145 mmol/L Potassium Level 3.9 3.5-5.1 mmol/L Chloride Level 111 H 98-107 mmol/L Carbon Dioxide Level 25 20-31 mmol/L Anion Gap 7 5-15 Blood Urea Nitrogen 9 9-23 mg/dL Creatinine 1.03 H 0.550-1.02 mg/dL Glomerular Filtration Rate Calc 61 >90 mL/min BUN/Creatinine Ratio 8.7 L 10.0-20.0 Serum Glucose 104 74-106 mg/dL Hemoglobin A1c 5.5 <5.7 % A1C Calcium Level 9.9 8.7-10.4 mg/dL Total Bilirubin 0.5 0.2-1.0 mg/dL Aspartate Amino Transferase (AST) 14 13-40 U/L Alanine Aminotransferase (ALT) 24 7-40 U/L Alkaline Phosphatase 88 46-116 U/L Total Protein 7.0 5.7-8.2 g/dL Albumin 4.1 3.2-4.8 g/dL Thyroid Stimulating Hormone (TSH) 1.41 0.55-4.78 uIU/mL Urine Color Light-yellow Yellow Urine Clarity Clear Clear Urine pH 7.0 5.0-9.0 Urine Specific [place] 1.017 1.001-1.035 Urine Protein Negative Negative Urine Ketones Negative Negative Urine Blood Negative Negative /uL Urine Nitrite Negative Negative Urine Bilirubin Negative Negative Urine Urobilinogen Normal Negative mg/dL Urine Leukocyte Esterase Negative Negative /uL Urine RBC 2 0 - 4 /hpf Urine WBC <1 0 - 5 /hpf Urine Squamous Epithelial Cells Few <5 /hpf Urine Bacteria None seen None Seen /hpf Urine Glucose Normal Normal mg/dL Urine Opiates Screen Neg NEGATIVE Urine Fentanyl Screen Neg NEGATIVE Urine Barbiturates Screen Neg NEGATIVE Urine Phencyclidine Screen Neg NEGATIVE Urine Amphetamines Screen Neg NEGATIVE Urine Benzodiazepines Screen Neg NEGATIVE Urine Cocaine Screen Neg NEGATIVE Urine Cannabinoids Screen Neg NEGATIVE Troponin I High Sensitivity < 3 L </=34 ng/L Assessment Presyncope likely due to vasovagal response Hypertensive urgency Bipolar type 2 disorder Anxiety disorder Chronic knee pain Plan/Recommendation Conservative management Recent echocardiogram showed ejection fraction 60% and no valve abnormalities. High blood pressure control with the amlodipine 10 mg daily Consider stop using ibuprofen and started on acetaminophen p.r.n. for pain control Continue with home meds. Continue other medical management per hospitalist and other consultants. Thank you for allowing us participate in this case, there is no further workup indicated at this time, we are signing off Case discussed with Dr. Cotto Critical care, time spent: 44 minutes. Plan discussed with: Patient Date of Service: Aug 25, 2024 Billing Provider: NINO COTTO MD Cardiology Common Codes: [id number] INP/OBS CARE (High) TRINA RILEY RESIDENT Aug 25, 2024 14:56
--- NOTE | 2024-08-25 14:58 | DVHSR ---
APPROVED REPORT EXAM: Two-dimensional and M-mode echocardiogram with Doppler and color Doppler. Blood Pressure: 128/69 mmHg INDICATION Syncope RISK FACTORS Height: 65, Weight: 165 DIMENSIONS LVDd4.9 (3.8-5.7cm)LA (2D)3.5 (1.9-4.0cm)Aortic Root3.5 (2.0-3.7cm) LVDs3.2 (2.5-4.0cm)LA (MM) (1.9-4.0cm)Aortic Cusp Exc1.3 (1.5-2.0cm) EF (%) 65.0 (55-70%)Rt. Atrium3.5 (1.9-4.0cm)Asc. Aorta cm IVSd1.0 (0.7-1.1cm)RV (D) (1.8-2.4cm) PWd1.0 (0.7-1.1cm) Mitral Valve MitralMitral Stenosis E wave0.76m/sMV Mean GR.mmHg A wave0.90m/sMV Peak GR.mmHg E/A ratio0.82D MVAcm2 DECEL [id number] 1/2 Timems Aortic Valve Aortic ValveAortic Stenosis V10.94m/Darwin Mean GR.3mmHg V21.30m/Darwin Peak GR.7mmHg Pulmonic Valve V20.79m/s Conclusion Normal left ventricular size and dimension. Normal left ventricular systolic function estimated ejec tion fraction 60%. There is a grade1 diastolic dysfunction. Normal right ventricular size and dimension. Normal right ventricular systolic function. Normal biatrial size and dimension. Normal aortic valve structure and function. Normal mitral valve structure and function. Normal tricuspid valve structure and function. The pulmonary valve is grossly normal. No pericardial effusion but there is epicardial fat pad.
--- NOTE | 2024-08-25 15:05 | BSKYNEURO ---
[facility] Note # Demographics Consult Type: General Neurology Patient Location: Inpatient First Name: Gini Last Name: Neha Date of : 1960 Age: 64 Gender: Female Facility: [facility] Time of Initial Page ( Time): 08/25/2024, 14:46 Time of Return Call ( Time): 08/25/2024, 14:46 # HPI Chief Complaint: Recurrent syncope History: 64F with HTN presents with recurrent syncope. Started feeling dizzy, lightheaded, with headache, diaphoresis, nausea, and vomiting; followed by dry heaving and passing out. BP 186/82 on arrival to ED. Noted to have no focal neurologic deficits on their evaluation. CT head done, which was unremarkable. Started on Wednesday. [place] like she was getting tunnel vision, got herself to the ground, started dry heaving, and then resolved. Afterwards, remained dizzy for 10-15 minutes, but otherwise normal. On 08/24, went to take a shower, by the time she got to the bathroom she had recurrence of the event; started blacking out, held onto the costa and got to her bed, laid down, and then started having recurrent vomiting. BP was very high on arrival to urgent care, and subsequently transferred here. checked BP 93/73 -> 98/73 on Wednesday event. Blood sugar in the 90s. # Exam Mental Status: - awake - alert and oriented x 3 - follows commands Language: - normal speech Cranial Nerves: - normal Motor: - normal strength Sensory: - normal sensation Cerebellar: - normal cerebellar exam # Assessment Impression: Syncope with associated nausea and vomiting Very low suspicion for stroke given normal neurologic exam and lack of persistent symptoms History most consistent with a vasovagal syncope # Plan Diagnostic Test: f/u TTE Telemetry monitoring Routine EEG Orthostatic vital signs Consider tilt-table testing If above unremarkable, can get MRI brain to rule out stroke Other: - If patient has any neurological deterioration please call me back immediately - telemetry monitoring Disposition: continue admission # Logistics Attestation of consult completion: The patient is located at: [facility]. Facility staff participated in the visit. I performed this telemedicine visit from my offsite office utilizing interactive 2 way audio and visual telecommunication technology. Total time spent in telemedicine encounter: I spent 10 minutes reviewing clinical data and/or imaging, obtaining history, examining the patient, communicating with the onsite care team, and in preparation of this report. Electronically signed at 08/25/2024 15:05 ([place] Time) by Herson Georges MD Yes HERSON GEORGES MD Aug 25, 2024 15:05
[2024-08-25] MEDS: amLODIPine BESYLATE 5 MG TAB PO ONE (15:17)
[2024-08-26] VITALS (8 sets, daily range): BP systolic 132–159; BP diastolic 72–84; PULSE 76–84; RESP 17–18; TEMP 98–98.4; O2SAT 92–98
[2024-08-26 03:51] LABS: COVID19 ANTIGEN SOFIA FIA NEGATIVE (NEGATIVE); Rapid Influenza A Negative (Negative); Rapid Influenza B Negative (Negative)
[2024-08-26 07:30] LABS: Basophils # (auto) 0.1 10 ^3/uL (0-0.2); Basophils % (auto) 0.7 % (0.0-2.0); Eosinophils # (auto) 0 10 ^3/uL (0-0.8); Eosinophils % (auto) 0.6 % (0.0-7.0); Hematocrit 41.9 % (36.0-46.0); Hemoglobin 14.5 g/dL (12.2-16.2); Lymphocytes # (auto) 1.7 10 ^3/uL (0.4-5.4); Lymphocytes % (auto) 22.4 % (10.0-50.0); Mean Corpuscular Hemoglobin 30.6 pg (28.0-32.0); Mean Corpuscular Hgb Conc. 34.6 g/dL (32.0-36.0); Mean Corpuscular Volume 88.5 fL (80.0-100.0); Monocytes # (auto) 0.7 10 ^3/uL (0-1.3); Monocytes % (auto) 9.9 % (0.0-12.0); Neutrophils # (auto) 4.9 10 ^3/uL (1.6-8.6); Neutrophils % (auto) 66.4 % (37.0-80.0); Platelet Count (auto) 260 10^3/uL (140-450); Red Blood Cells 4.74 10^6/uL (4.0-5.20); Red Cell Distribution Width 13.4 % (11.8-14.3); White Blood Cell 7.4 10^3/uL (4.4-10.8)
[2024-08-26 07:47] LABS: Alanine Aminotransferase 24 U/L (7-40); Albumin 4.2 g/dL (3.2-4.8); Alkaline Phosphatase 87 U/L (46-116); Anion Gap 8 (5-15); Aspartate Aminotransferase 16 U/L (13-40); BUN/Creatinine Ratio 9.4 (10.0-20.0); Bilirubin, Total 0.5 mg/dL (0.2-1.0); Blood Urea Nitrogen 9 mg/dL (9-23); Calcium 9.7 mg/dL (8.7-10.4); Carbon Dioxide 26 mmol/L (20-31); Chloride 108 mmol/L (98-107); Glucose 105 mg/dL (74-106); Sodium 142 mmol/L (136-145); Total Protein 7.2 g/dL (5.7-8.2)
[2024-08-26] MEDS: amLODIPine BESYLATE 5 MG TAB PO SCH (08:41)
--- NOTE | 2024-08-26 13:20 | DVHPN2 ---
Reviewed: Care Plan, H&P Changes from previous H/P or p: No Changes General: Per HPI Eyes: No Pain, No Vision change, No Conjunctivae inflammation, No Eyelid inflammation, No Other, No Redness ENT: No Ear pain, No Ear discharge, No Nose pain, No Nose discharge, No Nose congestion, No Mouth pain, No Mouth swelling, No Throat pain, No Throat swelling, No Other Cardiovascular: No Chest Pain, No Palpitations, No Orthopnea, No Paroxysmal Noc. Dyspnea, No Edema, No Lt Headedness, No Other Respiratory: No Cough, No Dry, No Shortness of breath, No SOB with excertion, No Wheezing, No Hemoptysis, No Pleuritic Pain, No Sputum, No Other Gastrointestinal: Nausea, Vomiting; No Abdominal Pain, No Diarrhea, No Constipation, No Melena, No Hematochezia, No Other Genitourinary: No Dysuria, No Frequency, No Incontinence, No Hematuria, No Retention, No Other Musculoskeletal: No other, No neck pain, No shoulder pain, No arm pain, No back pain, No hand pain, No leg pain, No foot pain Skin: No Rash, No Lesions, No Jaundice, No Bruising, No Other Objective Vitals Vital Signs Date Time Temp Pulse Resp B/P (MAP) Pulse Ox O2 Delivery O2 Flow Rate FiO2 08/26/24 12:30 98.3 82 17 133/74 (93) 96 98.3 08/26/24 08:00 Room Air* 0 21 Intake/Output Intake and Output 08/26/24 07:00 Intake Total 665 ml Balance 665 ml Intake Oral 665 ml # Voids 5 General Appearance: Alert, Oriented X3, Cooperative Cardiovascular: Regular rate, Normal S1, Normal S2 Abdomen: Normal bowel sounds, Soft Medications Current Medications Medications Dose Ordered Sig/Enriqueta Route Start Time Stop Time Status Last Admin Dose Admin Sodium Chloride 10 ml Q8HR IV 08/25/24 06:00 08/26/24 05:17 10 ML Acetaminophen/ Hydrocodone Bitart 1 tab Q4HP PRN PO 08/25/24 00:45 08/26/24 10:46 1 TAB Ondansetron HCl 4 mg Q4HP PRN IV 08/25/24 00:45 08/26/24 10:45 4 MG Docusate Sodium 100 mg BIDPRN PRN PO 08/25/24 00:45 Acetaminophen 650 mg Q6HP PRN PO 08/25/24 00:45 08/26/24 08:50 650 MG Nitroglycerin 0.4 mg Q5MINP PRN SL 08/25/24 00:45 Morphine Sulfate 2 mg Q30M PRN IV 08/25/24 00:45 Amlodipine Besylate 10 mg DAILY PO 08/26/24 10:00 08/26/24 08:41 10 MG Laboratory Results Laboratory Tests 08/26/24 06:19 Chemistry Test 08/26/24 06:19 Albumin 4.2 g/dL (3.2-4.8) Calcium Level 9.7 mg/dL (8.7-10.4) Total Protein 7.2 g/dL (5.7-8.2) LFT Test 08/26/24 06:19 Alanine Aminotransferase (ALT) 24 U/L (7-40) Alkaline Phosphatase 87 U/L (46-116) Aspartate Amino Transferase (AST) 16 U/L (13-40) Total Bilirubin 0.5 mg/dL (0.2-1.0) Urinalysis Test 08/25/24 00:00 Urine Color Light-yellow (Yellow) Urine Clarity Clear (Clear) Urine pH 7.0 (5.0-9.0) Urine Specific [place] 1.017 (1.001-1.035) Urine Protein Negative (Negative) Urine Ketones Negative (Negative) Urine Blood Negative /uL (Negative) Urine Nitrite Negative (Negative) Urine Bilirubin Negative (Negative) Urine Urobilinogen Normal mg/dL (Negative) Urine Leukocyte Esterase Negative /uL (Negative) Urine RBC 2 /hpf (0 - 4) Urine WBC <1 /hpf (0 - 5) Urine Squamous Epithelial Cells Few /hpf (<5) Urine Bacteria None seen /hpf (None Seen) Urine Glucose Normal mg/dL (Normal) Labs and/or images reviewed: Labs reviewed by me, Image(s) reviewed by me Assessment/Plan Assessment/Plan Syncope and collapse Hypertensive urgency Generalized weakness awaiting full wrk up per cardiology Plan discussed with: Patient Date of Service: Aug 26, 2024 Billing Provider: GORDON IRIZARRY DO Common Visit Codes: [id number] INP/OBS CARE(HIGH) GORDON IRIZARRY DO Aug 26, 2024 13:20
--- NOTE | 2024-08-26 15:41 | DVH ---
EXAM: MRI BRAIN HEAD WO CONTRAST CLINICAL HISTORY: syncope COMPARISON: CT HEAD WITHOUT CONTRAST on DOS: 08/24/24 TECHNIQUE: Multiplanar, multisequence magnetic resonance imaging of the brain was performed without intravenous contrast. FINDINGS: There is normal brain volume and formation. Mild chronic small-vessel ischemic changes. There are no hemorrhages, masses, mass effect, midline shift, herniation or cytotoxic edema following a large vascular territory. There is no intra-axial or extra-axial fluid collections. There is no e vidence of hydrocephalus. The basal cisterns are patent. Vascular flow voids are maintained. Nonspecific partially empty sella. The cerebellar tonsils are normal position. The cerebellum is unr emarkable. The orbits and globes unremarkable. Minimal mucoperiosteal thickening of the ethmoid air cells. Othe rwise, the paranasal sinuses and mastoids are clear. There are no worrisome calvarial lesions. IMPRESSION: No evidence of acute intracranial abnormalities. Nonspecific partially empty sella.
[2024-08-26] MEDS: QUEtiapine FUMARATE 100 MG TAB PO SCH (20:41)
[2024-08-26] MEDS: WELLBUTRIN 300 MG PO SCH (20:47)
[2024-08-26] MEDS ORDERED: buPROPion HCL 75 MG TAB PO SCH (22:00)
[2024-08-26] MEDS ORDERED: busPIRone HCL 10 MG TAB PO SCH (22:00)
[2024-08-27] VITALS (7 sets, daily range): BP systolic 112–125; BP diastolic 56–81; PULSE 85–103; RESP 16–18; TEMP 36.8; O2SAT 91–95
--- NOTE | 2024-08-29 20:15 | DVHDS2 ---
Discharge Summary Date of Admission Aug 25, 2024 at 00:55 Date of Discharge: Aug 27, 2024 Labs/Diagnostic Data: Laboratory Results Test 08/26/24 06:19 08/26/24 02:00 08/25/24 06:44 08/25/24 00:00 White Blood Count 7.4 10^3/uL (4.4-10.8) Red Blood Count 4.74 10^6/uL (4.0-5.20) Hemoglobin 14.5 g/dL (12.2-16.2) Hematocrit 41.9 % (36.0-46.0) Mean Corpuscular Volume 88.5 fL (80.0-100.0) Mean Corpuscular Hemoglobin 30.6 pg (28.0-32.0) Mean Corpuscular Hemoglobin Concent 34.6 g/dL (32.0-36.0) Red Cell Distribution Width 13.4 % (11.8-14.3) Platelet Count 260 10^3/uL (140-450) Mean Platelet Volume 8.0 fL (6.9-10.8) Neutrophils (%) (Auto) 66.4 % (37.0-80.0) Lymphocytes (%) (Auto) 22.4 % (10.0-50.0) Monocytes (%) (Auto) 9.9 % (0.0-12.0) Eosinophils (%) (Auto) 0.6 % (0.0-7.0) Basophils (%) (Auto) 0.7 % (0.0-2.0) Neutrophils # (Auto) 4.9 10 ^3/uL (1.6-8.6) Lymphocytes # (Auto) 1.7 10 ^3/uL (0.4-5.4) Monocytes # (Auto) 0.7 10 ^3/uL (0-1.3) Eosinophils # (Auto) 0 10 ^3/uL (0-0.8) Basophils # (Auto) 0.1 10 ^3/uL (0-0.2) Nucleated Red Blood Cells 0.0 % Sodium Level 142 mmol/L (136-145) Potassium Level 4.0 mmol/L (3.5-5.1) Chloride Level 108 mmol/L (98-107) Carbon Dioxide Level 26 mmol/L (20-31) Anion Gap 8 (5-15) Blood Urea Nitrogen 9 mg/dL (9-23) Creatinine 0.96 mg/dL (0.550-1.02) Glomerular Filtration Rate Calc 67 mL/min (>90) BUN/Creatinine Ratio 9.4 (10.0-20.0) Serum Glucose 105 mg/dL (74-106) Calcium Level 9.7 mg/dL (8.7-10.4) Total Bilirubin 0.5 mg/dL (0.2-1.0) Aspartate Amino Transferase (AST) 16 U/L (13-40) Alanine Aminotransferase (ALT) 24 U/L (7-40) Alkaline Phosphatase 87 U/L (46-116) Total Protein 7.2 g/dL (5.7-8.2) Albumin 4.2 g/dL (3.2-4.8) Influenza Type A Antigen Negative (Negative) Influenza Type B Antigen Negative (Negative) SARS-CoV-2 Antigen (Rapid) Negative (NEGATIVE) Hemoglobin A1c 5.5 % A1C (<5.7) Thyroid Stimulating Hormone (TSH) 1.41 uIU/mL (0.55-4.78) Urine Color Light-yellow (Yellow) Urine Clarity Clear (Clear) Urine pH 7.0 (5.0-9.0) Urine Specific [place] 1.017 (1.001-1.035) Urine Protein Negative (Negative) Urine Ketones Negative (Negative) Urine Blood Negative /uL (Negative) Urine Nitrite Negative (Negative) Urine Bilirubin Negative (Negative) Urine Urobilinogen Normal mg/dL (Negative) Urine Leukocyte Esterase Negative /uL (Negative) Urine RBC 2 /hpf (0 - 4) Urine WBC <1 /hpf (0 - 5) Urine Squamous Epithelial Cells Few /hpf (<5) Urine Bacteria None seen /hpf (None Seen) Urine Glucose Normal mg/dL (Normal) Urine Opiates Screen Neg (NEGATIVE) Urine Fentanyl Screen Neg (NEGATIVE) Urine Barbiturates Screen Neg (NEGATIVE) Urine Phencyclidine Screen Neg (NEGATIVE) Urine Amphetamines Screen Neg (NEGATIVE) Urine Benzodiazepines Screen Neg (NEGATIVE) Urine Cocaine Screen Neg (NEGATIVE) Urine Cannabinoids Screen Neg (NEGATIVE) Test 08/24/24 22:30 Troponin I High Sensitivity < 3 ng/L (</=34) Other Laboratory Tests 08/26/24 06:19 Brief Hx & Hospital Course: THE PATIENT IS A 64-YEAR-OLD FEMALE WITH PAST MEDICAL HISTORY OF HYPERTENSION WHO PRESENTED TO [facility] ED FOR EVALUATION OF SYNCOPE. PATIENT REPORTS HAS BEEN HAVING INTERMITTENT EPISODE OF OF SYNCOPAL ATTACK, FELT DIZZY, LIGHTHEADED, DIAPHORETIC, HEADACHE, NAUSEA, VOMITING, GETTING WORSE TODAY THAT PROMPTED THIS VISIT. PATIENT WAS SEEN AND EVALUATED IN THE ED, LABORATORY DATA SHOWS WBC 11.6, PLATELETS 272, SODIUM 140, POTASSIUM 4.2, BUN 9, CREATININE 0.89, GLUCOSE 116, TROPONIN 3, BLOOD PRESSURE 186/102 TRENDING DOWN TO 150/81, HEART RATE 86, TEMPERATURE 97.8 F, O2 SATURATION 96% ON ROOM AIR. PLEASE SEE MEDICATION ORDERS SECTION IN THE COMPUTER. ON MY ASSESSMENT, PATIENT DENIED CHEST PAIN, NO HEADACHE, NO DIZZINESS, NO DIAPHORESIS, NO PALPITATION, NO SHORTNESS A BREATH, NO NAUSEA, NO VOMITING, NO FEVER, NO CHILLS. PATIENT WAS ADMITTED FOR FURTHER EVALUATION AND MEDICAL MANAGEMENT. Syncope and collapse Hypertensive urgency Generalized weakness full work up completed by cardiology ok to be discharged to home with self care Condition at Discharge: Stable Final Diagnosis/Problems List SYNCOPY Discharge Disposition: Home Discharge Instruct/Medications Diet: Cardiac 2g Na,low cholest Activity: No Restrictions, As Tolerated Discharge Statement: "Patient was advised to return to the ER or call 911 if any headaches, dizziness, shortness of breath, chest pain, abdominal pain, bleeding, fevers, or worsening of medical condition. Patient was counseled about treatment plan, medications, possible side effects, patientverbalized understanding. All questions were answered to the best of my ability. This discharge took greater then 30 minutes in planning, reviewing documentation, counseling the patient, and discussing with other team members." ASSESSMENT ASSESSMENT Assessment SYNCOPY Date of Service: Aug 27, 2024 Billing Provider: GORDON IRIZARRY DO Common Visit Codes: [id number] DISCH DAY >30min GORDON IRIZARRY DO Aug 29, 2024 20:15
== END 2024-08-27 17:05 | disposition home or self-care (01) | DRG 305 ==
LOC: EDBD 21:25 → ER 21:25 → TELE 08-25 00:55 → TELE-CENTR 08-25 08:30
PROVIDERS: ADMIT Nurse Practitioner Family; ATTEND Internal Medicine
DX: I16.0 Hypertensive urgency (principal); F31.81 Bipolar II disorder; R55 Syncope and collapse; F41.9 Anxiety disorder, unspecified; Z20.822 Contact with and (suspected) exposure to COVID-19; Z96.652 Presence of left artificial knee joint; G89.29 Other chronic pain
CPT/HCPCS: 36415; 70551; 71045; 80048; 80053; 80307; 81001; 83036; 84443; 84484; 85025; 87426; 87804; 93005; 93306; 99291; G0378; J2405